=== PATIENT | female | born 1965 | race Caucasian/White ===

== ENCOUNTER 2019-07-16 | Emergency (ER) | payer OTHER ==
[2019-07-16] MEDS ORDERED: LORTAB 7.57.5 MG PO (18:03)
== END 2019-07-16 18:10 | disposition home or self-care (01) | DRG 563 ==
PROC: 2W3DX1Z Immobilization of Left Lower Arm using Splint (ICD-10-PCS; principal; 2019-07-16)
DX: S52.502A Unspecified fracture of the lower end of left radius, initial encounter for closed fracture (principal); S52.612A Displaced fracture of left ulna styloid process, initial encounter for closed fracture; W17.2XXA Fall into hole, initial encounter